=== PATIENT | male | born 1950 | race Caucasian/White ===

== ENCOUNTER → 2016-11-02 | Outpatient (POV) | payer OTHER | LOC: OUTPT 00:01 | PROVIDERS: ATTEND Otolaryngology | DX: H93.19 Tinnitus, unspecified ear (principal) | CPT/HCPCS: 92552 ==

== ENCOUNTER 2018-08-19 07:20 | Outpatient (CLI) | END 2018-08-19 07:21 | disposition home or self-care (01) | LOC: AMBL 07:20 | PROVIDERS: ATTEND Emergency Medicine | DX: R55 Syncope and collapse (principal); R07.9 Chest pain, unspecified; R10.13 Epigastric pain; E11.9 Type 2 diabetes mellitus without complications; Z79.4 Long term (current) use of insulin; W19.XXXA Unspecified fall, initial encounter; Z79.899 Other long term (current) drug therapy ==

== ENCOUNTER 2018-09-30 13:58 | Outpatient (CLI) | payer OTHER | END 2018-09-30 14:09 | disposition short-term general hospital (02) | LOC: AMBL 13:58 | PROVIDERS: ATTEND Internal Medicine | DX: R07.9 Chest pain, unspecified (principal); R55 Syncope and collapse ==